=== PATIENT | male | born 1990 | race Caucasian/White ===

== ENCOUNTER 2017-01-11 17:00 | Emergency (ER) | payer OTHER ==
[~2017-01-11] VITALS: Ht 177.8 cm; Wt 72.6 kg
[~2017-01-11 17:00] MED LIST: Z.0.NO CURRENT MEDS
[2017-01-11 17:09] VITALS: BP 119/79; PULSE 78; RESP 16; TEMP 98.1; O2SAT 97
--- NOTE | 2017-01-11 17:25 | PD ---
HPI Chief Complaint: Bite or Sting Time Seen by Provider: 17:23 Travel History International Travel<30 days: No Contact w/Intl Traveler<30days: No Traveled to known affect area: No History of Present Illness HPI 26-year-old male presents to the ED for evaluation of right foot injury. The patient states he was walking in the water and stepped on a stingray. He states that he felt a sharp pain as the stingray swam away. This occurred at approximately 1 PM. He states that approximately one hour later he experienced a throbbing pain to the knee. He states that he soaked the foot in hot water 20 minutes at a time 3 or 4 soaks. On presentation he endorses 3-4/10 pain. He has been ambulatory since the accident. He denies numbness, tingling, weakness, limitations to range of motion or loss of strength of the extremity. Denies chronic health problems, takes no daily medications. NKDA. PFSH Past Medical History Medical History: Denies Significant Hx Diminished Hearing: No Tetanus Vaccination: Unknown Influenza Vaccination: No Past Surgical History Ear Surgery: Yes (Right ear) Social History Alcohol Use: No Tobacco Use: No Substance Use: No Allergies-Medications (Allergen,Severity, Reaction): Coded Allergies: No Known Allergies (Verified , 01/11/17) Reported Meds & Prescriptions Reported Meds & Active Scripts Active No Active Prescriptions or Reported Medications Review of Systems Except as stated in HPI: all other systems reviewed are Neg Physical Exam Narrative GENERAL: Well-nourished, well-developed nontoxic appearing white male white male in no acute distress. SKIN: Focused skin assessment warm/dry. There is a puncture wound on the medial aspect of the right foot, posterior to the medial malleolus. This is surrounded by 1-2 cm area mild erythema. HEAD: Normocephalic. EYES: No scleral icterus. No injection or drainage. NECK: Supple, trachea midline. No JVD or lymphadenopathy. CARDIOVASCULAR: Regular rate and rhythm without murmurs, gallops, or rubs. RESPIRATORY: Breath sounds equal bilaterally. No accessory muscle use. GASTROINTESTINAL: Abdomen soft, non-tender, nondistended. MUSCULOSKELETAL: No cyanosis, or edema. Focused right lower extremity exam: 2+ radial pulse. Patient retains full, active, painless range of motion of the entire extremity. Neurovascularly intact. BACK: Nontender without obvious deformity. No CVA tenderness. Data Data Last Documented VS Vital Signs Date Time Temp Pulse Resp B/P Pulse Ox O2 Delivery O2 Flow Rate FiO2 01/11/17 17:09 98.1 78 16 119/79 97 Orders Foot, Limited (2vws) (01/11/17 17:21) Tetanus/Diphtheria Tox Adult (Tetanus/Di (01/11/17 18:00) MDM Medical Decision Making Medical Screen Exam Complete: Yes Emergency Medical Condition: Yes Differential Diagnosis Marine animal sting versus puncture wound versus retained foreign body versus stingray [place] versus other Narrative Course 26-year-old male presents to the ED for evaluation of right foot injury. Patient states that he was walking in the water approximately 1 PM and stepped on a stingray. He states that he felt a sharp pain as the stingray swam away. He states that approximately one hour later he experienced a throbbing pain to the knee. He states that he soaked the foot in hot water 20 minutes at a time 3 or 4 soaks. On presentation he endorses 3-4/10 pain. He has been ambulatory since the accident. He denies numbness, tingling, weakness, limitations to range of motion or loss of strength of the extremity. Vitals reviewed. Physical exam reveals a nontoxic-appearing white male in no acute distress. There is a puncture wound on the medial aspect of the right foot, posterior to the medial malleolus, surrounded by 1-2 cm area mild erythema. Patient retains full, active, painless range of motion of the entire extremity. Neurovascularly intact. X-rays reveal no foreign body per radiology read. The patient's wound was irrigated with roughly 500 mL's normal saline. Clean dressing was applied. Patient's tetanus immunization was updated. He is instructed to rest and elevate the extremity, return to normal gentle activity as tolerated, follow-up with primary care provider. He was cautioned to soak the foot and very hot water should pain return. He indicated understanding of the instructions and is agreeable to the care plan. The patient is stable and discharged home. Diagnosis Primary Impression: Contact with stingray as cause of accidental injury Additional Impressions: Puncture wound of right ankle Qualified Code: S91.031A - Puncture wound of right ankle, initial encounter Need for tetanus booster Referrals: Primary Care Physician Patient Instructions: General Instructions, Marine Animal Bite or Sting (ED) Additional Instructions: Rest, elevate the extremity. If pain returns soak the foot in the hottest water you can stand. Return to normal, gentle activity as tolerated. No running, jumping activities for the next few weeks. Follow up with your primary care provider. Return to the ED for any urgent or emergent medical condition. Scripts No Active Prescriptions or Reported Meds Disposition: 01 DISCHARGE HOME Condition: Stable Marcia Lim Jan 11, 2017 17:25
--- NOTE | 2017-01-11 17:45 | RADHPO ---
EXAM DATE/TIME: 01/11/2017 17:28 [facility] COMPARISON: No previous studies available for comparison. INDICATIONS : Right foot pain after being stung by a stingray, rule out foreign body. MEDICAL HISTORY : None. SURGICAL HISTORY : None. ENCOUNTER: Initial ACUITY: 1 day PAIN SCORE: 4/10 LOCATION: Right medial side of calcaneus FINDINGS: Two view examination of the right foot demonstrates no soft tissue swelling, dislocation, or fracture . The calcaneus is intact. Bony mineralization is normal. CONCLUSION: No acute disease. No evidence of radiopaque foreign body. Michael Sanchez MD on January 11, 2017 at 17:42 Board Certified Radiologist. This report was verified electronically.
[2017-01-11] MEDS ORDERED: TETANUS/DIPHTHERIA TOXOID ADULT 0.5 ML VIAL IM ONE (18:00)
== END 2017-01-11 18:21 | disposition home or self-care (01) ==
LOC: PHEFT 17:00
DX: S91.031A Puncture wound without foreign body, right ankle, initial encounter (principal); Z23 Encounter for immunization; W56.81XA Bitten by other nonvenomous marine animals, initial encounter; Y93.01 Activity, walking, marching and hiking; Y92.832 Beach as the place of occurrence of the external cause; Y99.8 Other external cause status
CPT/HCPCS: 73620; 90471; 90714